=== PATIENT | male | born 1945 | race Caucasian/White ===

== ENCOUNTER 2021-08-16 06:50 | Day surgery (SDC) | payer OTHER ==
[2021-08-14 13:32] LABS: BASOPHILS % (AUTO) 1.1 % (0.0-5.0); EOSINOPHILS % (AUTO) 3.7 % (0.0-8.0); HEMATOCRIT 36.8 % (42-54); MEAN CORPUSCULAR HEMOGLOBIN 32.2 pg (27.0-33.0); MEAN CORPUSCULAR HGB CONC 33.4 g/dL (32.0-36.0); MEAN CORPUSCULAR VOLUME 96.3 fL (79-99); MONOCYTES % (AUTO) 11.9 % (3.0-13.0); PLATELET COUNT (AUTO) 159 K/uL (130-400); RED BLOOD CELL COUNT(AUTO) 3.82 MIL/uL (4.50-6.20); RED CELL DISTRIBUTION WIDTH 13.7 % (11.0-15.5); WHITE BLOOD COUNT (AUTO) 3.8 K/uL (4.8-10.8)
[2021-08-14 13:40] LABS: CREATININE 1.2 mg/dL (0.5-1.5)
[2021-08-14 13:43] LABS: INR 1.02 (0.85-1.15); PROTHROMBIN TIME 11.1 SEC (9.6-11.6)
[2021-08-14 13:44] LABS: PARTIAL THROMBOPLASTIN TIME 27.9 SEC (26.3-35.5)
[~2021-08-16] VITALS: Ht 185.4 cm; Wt 113.9 kg
[2021-08-16] VITALS (10 sets, daily range): BP systolic 130–187; BP diastolic 78–113
[~2021-08-16 06:50] MED LIST: 0.9%NACL 1000ML 1,000 ML IV SCH; APIX5TAB PO; ASPI-1197 PO; ATOR-2 PO; CARV6.25 PO; METF-446 PO; SOTA80TA PO
[2021-08-16] MEDS ORDERED: INSU100V12 SQ ×2 (07:41)
[2021-08-16] MEDS ORDERED: HEPARIN 10,000 UNIT/10ML (1,000 UNIT/ML) VIAL ONE (09:03)
[2021-08-16] MEDS ORDERED: MIDAZOLAM HCL 1 MG/ML 2ML VIAL ONE (09:04)
[2021-08-16] MEDS ORDERED: MEPERIDINE-PF 25 MG/ML SYG ONE (09:04)
[2021-08-16] MEDS ORDERED: LIDOCAINE HCL 400MG/20ML VIAL ONE (09:04)
== END 2021-08-16 14:10 | disposition home or self-care (01) ==
LOC: DAH 06:50
PROVIDERS: ATTEND Internal Medicine Cardiovascular Disease
DX: I48.3 Typical atrial flutter (principal); I10 Essential (primary) hypertension; E11.9 Type 2 diabetes mellitus without complications; E78.5 Hyperlipidemia, unspecified; Z79.01 Long term (current) use of anticoagulants; I44.0 Atrioventricular block, first degree; Z79.899 Other long term (current) drug therapy; Z82.49 Family history of ischemic heart disease and other diseases of the circulatory system
CPT/HCPCS: 36415; 80048; 82948 ×3; 85025; 85610; 85730; 93005; 93653; A4215; A4216; A4221; A4222; A4223 ×3; A4606; A4649 ×2; A4663; C1730; C1732; C1894 ×2; J1644 ×2; J2175; J2250; J3490; J7030; 99156; 99157